=== PATIENT | female | born 1975 | race Caucasian/White ===

== ENCOUNTER 2023-12-11 18:53 | Emergency (ER) | payer SELFPAY ==
[~2023-12-11] VITALS: Ht 152.4 cm; Wt 68.2 kg
[~2023-12-11 18:53] MED LIST: NOCURR
[2023-12-11 18:58] VITALS: TEMP 97.9
[2023-12-11] MEDS ORDERED: IBUP-1492 PO (22:19)
[2023-12-11] MEDS: KETOROLAC TROMETHAMINE 60 MG/2 ML VIAL IM ONE (22:27)
[2023-12-11 22:33] VITALS: BP 127/74; PULSE 84; RESP 16
== END 2023-12-11 22:35 | disposition home or self-care (01) ==
LOC: EMS 19:01
DX: T81.31XA Disruption of external operation (surgical) wound, not elsewhere classified, initial encounter (principal); Y92.89 Other specified places as the place of occurrence of the external cause
CPT/HCPCS: 99283; 96372; J1885